=== PATIENT | male | born 1950 | race Caucasian/White ===

== ENCOUNTER 2019-06-14 09:57 | Emergency (ER) | payer OTHER, MEDICARE ==
--- NOTE | 2019-06-14 11:48 | EDPHYS ---
Physician Documentation [facility] Name: Aris Chamorro Age: 69 yrs Sex: Male : 1950 Arrival Date: 06/14/2019 Time: 09:58 Bed 11 Private MD: ED Physician Sanjay Nugent HPI: 06/14 11:00 This 69 yrs old Male presents to ER via Ambulatory with complaints of cp Laceration - Finger. 11:00 The patient or guardian reports injury. The complaints affect the distal phalanx left cp fourth finger. Context: resulted from use of meat cleavor to cut frozen zhang. Onset: The symptoms/episode began/occurred just prior to arrival. Associated signs and symptoms: Pertinent negatives: cyanosis distally, decreased sensation distally. Historical: - Allergies: 10:45 No Known Allergies; iw - Home Meds: 10:46 Plavix 75 mg Oral tab 1 tab once daily [Active]; iw - PMHx: 10:45 Myocardial infarction; iw - PSHx: 10:45 Heart stents; iw - Immunization history:: Adult Immunizations. - Social history:: Smoking status: Patient/guardian denies using tobacco. - Ebola Screening: : Patient negative for fever greater than or equal to 101.5 degrees Fahrenheit, and additional compatible Ebola Virus Disease symptoms Patient denies exposure to infectious person Patient denies travel to an Ebola-affected area in the 21 days before illness onset No symptoms or risks identified at this time. ROS: 11:01 Constitutional: Negative for fever. cp 11:01 Cardiovascular: Negative for chest pain. 11:01 Respiratory: Negative for cough, shortness of breath, wheezing. 11:01 Abdomen/GI: Negative for abdominal pain, nausea, vomiting, and diarrhea. 11:01 Skin: Positive for laceration(s), of the distal phalanx left fourth finger. 11:01 Neuro: Negative for numbness, tingling, weakness. 11:01 All other systems are negative. Exam: 11:10 Constitutional: The patient appears alert, awake, non-toxic, well developed, well cp nourished. 11:10 Head/Face: Normocephalic, atraumatic. cp 11:10 Skin: injury, avulsion(s), a small of the distal phalanx gutiérrez side left fourth finger, that can be described as with moderate bleeding. 11:10 Neuro: Motor: is normal, Sensation: is normal. Vital Signs: 10:46 BP 142 / 82; Pulse 55; Resp 16; Pulse Ox 94% on R/A; Weight 86.18 kg; Height 5 ft. 8 iw in. (172.72 cm); Pain /10; 10:46 Body Mass Index 28.89 (86.18 kg, 172.72 cm) iw MDM: 10:51 Patient medically screened. cp 11:46 Data reviewed: vital signs, nurses notes, radiologic studies, plain films. cp 11:46 Test interpretation: by ED physician or midlevel provider: plain radiologic studies. cp Response to treatment: the patient's symptoms have markedly improved after treatment, Surgiseal and pressure dressing applied to control bleeding. Wound check and dressing change recommended next 2-3 days. 06/14 10:59 Order name: XRAY Hand LEFT 3 View; Complete Time: 12:03 cp 06/14 11:18 Order name: Wound dressing: surgiseal dressing and pressure dressing; Complete Time: cp 11:51 Administered Medications: No medications were administered Disposition: 12:35 Chart complete. cp Disposition: 06/14/19 11:47 Discharged to Home. Impression: Laceration without foreign body of finger without damage to nail - left fourth finger. - Condition is Stable. - Discharge Instructions: Laceration Care, Adult. - Prescriptions for Keflex 500 mg Oral Capsule - take 1 capsule by ORAL route every 12 hours for 10 days; 20 capsule. - Medication Reconciliation Form, Thank You Letter, Antibiotic Education, Prescription Opioid Use, Work release form form. - Follow up: Private Physician; When: 48 Hours; Reason: Wound Recheck. - Problem is new. - Symptoms have improved. Addendum: 06/19/2019 08:55 Co-signature as Attending Physician, Sanjay Nugent MD I agree with the assessment and k dr plan of care. Signatures: Dispatcher [employer] EDCT Sajnay Nugent MD MD [facility] Kaur Chew RN RN iw Smirch, Shelby, RN RN ss Humberto Gan PA PA cp Corrections: (The following items were deleted from the chart) 06/14 12:29 11:47 06/14/2019 11:47 Discharged to Home. Impression: Laceration without foreign body ss of finger without damage to nail - left fourth finger. Condition is Stable. Forms are Medication Reconciliation Form, Thank You Letter, Antibiotic Education, Prescription Opioid Use. Follow up: Private Physician; When: 48 Hours; Reason: Wound Recheck. Problem is new. Symptoms have improved. cp
--- NOTE | 2019-06-14 11:48 | ER ---
Nurse's Notes [facility] Name: Aris Chamorro Age: 69 yrs Sex: Male : 1950 Arrival Date: 06/14/2019 Time: 09:58 Bed 11 Private MD: Diagnosis: Laceration without foreign body of finger without damage to nail-left fourth finger Presentation: 06/14 10:46 Presenting complaint:. iw 10:47 Presenting complaint: Patient states: was using a sharp meat julee to cut frozen iw zhang, cut the padding off left fourth digit, dressing in pace, bleeding controlled. Transition of care: patient was not received from another setting of care. Complicating Factors: There are no complicating factors for this patient. Onset of symptoms was June 14, 2019. Risk Assessment: Do you want to hurt yourself or someone else? Patient reports no desire to harm self or others. Initial Sepsis Screen: Does the patient meet any 2 criteria? No. Patient's initial sepsis screen is negative. Does the patient have a suspected source of infection? No. Patient's initial sepsis screen is negative. Care prior to arrival: None. 10:47 Method Of Arrival: Ambulatory iw 10:47 Acuity: YAEL 4 iw Historical: - Allergies: 10:45 No Known Allergies; iw - Home Meds: 10:46 Plavix 75 mg Oral tab 1 tab once daily [Active]; iw - PMHx: 10:45 Myocardial infarction; iw - PSHx: 10:45 Heart stents; iw - Immunization history:: Adult Immunizations. - Social history:: Smoking status: Patient/guardian denies using tobacco. - Ebola Screening: : Patient negative for fever greater than or equal to 101.5 degrees Fahrenheit, and additional compatible Ebola Virus Disease symptoms Patient denies exposure to infectious person Patient denies travel to an Ebola-affected area in the 21 days before illness onset No symptoms or risks identified at this time. Screenin:26 Abuse screen: Denies threats or abuse. Denies injuries from another. Nutritional ss screening: No deficits noted. Tuberculosis screening: Never had TB. Fall Risk None identified. Assessment: 12:26 Reassessment: Patient appears in no apparent distress at this time. Patient and/or ss family updated on plan of care and expected duration. Pain level reassessed. Patient is alert, oriented x 3, equal unlabored respirations, skin warm/dry/pink. bleeding controlled with Surgicel and pressure dressing. Vital Signs: 10:46 BP 142 / 82; Pulse 55; Resp 16; Pulse Ox 94% on R/A; Weight 86.18 kg; Height 5 ft. 8 iw in. (172.72 cm); Pain 1/10; 10:46 Body Mass Index 28.89 (86.18 kg, 172.72 cm) iw ED Course: 09:58 Patient arrived in ED. as 10:48 Triage completed. iw 10:48 Arm band placed on. iw 10:50 Humberto Gan PA is PHCP. cp 10:50 Sanjay Nugent MD is Attending Physician. cp 11:37 X-ray completed. Portable x-ray completed in exam room. Patient tolerated procedure mh1 well. 11:40 XRAY Hand LEFT 3 View In Process Unspecified. EDMS 12:26 Patient has correct armband on for positive identification. Bed in low position. Call ss light in reach. 12:26 No provider procedures requiring assistance completed. Patient did not have IV access ss during this emergency room visit. Wound care: to avulsion was cleaned with soap and water, dressed with Surgicel, Coban and 4x4, Patient tolerated well. Administered Medications: No medications were administered Outcome: 11:47 Discharge ordered by MD. cp 12:26 Discharged to home ambulatory. ss 12:26 Condition: good 12:26 Discharge instructions given to patient, family, Instructed on discharge instructions, follow up and referral plans. medication usage, wound care, Demonstrated understanding of instructions, follow-up care, medications, wound care, Prescriptions given X 1. 12:29 Patient left the ED. ss Signatures: Dispatcher [employer] EDMS OliverChelsea 1 Aura Sparks Irene, RN RN Yesenia Spicer RN RN Humberto Gan PA PA cp Corrections: (The following items were deleted from the chart) 10:47 10:46 BP 142 / 82; Pulse 55bpm; Resp 16bpm; Pulse Ox 94% RA; iw iw
--- NOTE | 2019-06-14 11:49 | RAD REPORT ---
EXAM DESCRIPTION: RAD - Hand Left 3 View - 06/14/2019 11:38 am CLINICAL HISTORY: finger laceration COMPARISON: <Comparisons> FINDINGS: Soft tissue laceration is noted involving the distal fourth finger. No fracture or foreign body evident.
[2019-06-14 12:42] VITALS: BP 142/82; O2SAT 94
== END 2019-06-14 12:29 | disposition home or self-care (01) ==
LOC: ER 09:57
DX: S61.215A Laceration without foreign body of left ring finger without damage to nail, initial encounter (principal); W26.0XXA Contact with knife, initial encounter; Y93.89 Activity, other specified; Y92.9 Unspecified place or not applicable; I25.2 Old myocardial infarction; Z79.01 Long term (current) use of anticoagulants; Z95.818 Presence of other cardiac implants and grafts
CPT/HCPCS: 99283

== ENCOUNTER 2020-07-30 09:02 | Emergency (ER) | payer OTHER, MEDICARE ==
--- NOTE | 2020-07-30 09:36 | ER ---
Nurse's Notes [facility] Name: Aris Chamorro Age: 70 yrs Sex: Male : 1950 Arrival Date: 07/30/2020 Time: 09:02 Bed 15 Private MD: Erik Swartz B Diagnosis: Pacheco's palsy Presentation: 07/30 09:00 Chief complaint: Patient states: woke up this morning and as he was brushing his teeth iw he noticed he was drooling, right side of face had a droop and his right eyelid was not moving normally, denies weakness in extremities, assistant banquet manager strong and equal, no speech impairment . Pt went to bed at 1145 pm last night, last known well is 1145 pm yesterday. Coronavirus screen: At this time, the client does not indicate any symptoms associated with coronavirus-19. Ebola Screen: Patient negative for fever greater than or equal to 101.5 degrees Fahrenheit, and additional compatible Ebola Virus Disease symptoms Patient denies exposure to infectious person. Patient denies travel to an Ebola-affected area in the 21 days before illness onset. No symptoms or risks identified at this time. Initial Sepsis Screen: Does the patient meet any 2 criteria? No. Patient's initial sepsis screen is negative. Does the patient have a suspected source of infection? No. Patient's initial sepsis screen is negative. Risk Assessment: Do you want to hurt yourself or someone else? Patient reports no desire to harm self or others. 09:00 Method Of Arrival: Wheelchair iw 09:00 Acuity: YAEL 3 iw 09:00 Onset of symptoms was July 29, 2020 at 23:00. bp Triage Assessment: 09:13 General: Appears distressed, comfortable, well groomed, Behavior is cooperative, bp appropriate for age, anxious. Pain: Denies pain. EENT: No deficits noted. Neuro: Level of Consciousness is awake, alert, obeys commands, Oriented to person, place, time, situation, Appropriate for age Robotic Maintenance Technician are equal bilaterally Moves all extremities. Full function Facial droop on right, INVOLVING ALL THREE BRANCHES OF TRIGEMINAL. Cardiovascular: No deficits noted. Respiratory: No deficits noted. GI: No signs and/or symptoms were reported involving the gastrointestinal system. : No signs and/or symptoms were reported regarding the genitourinary system. Derm: No deficits noted. Musculoskeletal: No deficits noted. Historical: - Allergies: 09:15 No Known Allergies; iw - Home Meds: 09:15 clopidogrel 75 mg oral tab 1 tab once daily [Active]; amlodipine 2.5 mg tab 1 tab once iw daily [Active]; atorvastatin 40 mg oral tab 1 tab once daily [Active]; irbesartan 300 mg oral tab 1 tab once daily [Active]; ezetimibe oral oral once daily [Active]; - PMHx: 09:15 Myocardial infarction; iw - PSHx: 09:15 Heart stents; iw - Immunization history:: Adult Immunizations up to date. - Social history:: Smoking status: Patient denies any tobacco usage or history of. - Family history:: not pertinent. Screenin:09 Abuse screen: Denies threats or abuse. Nutritional screening: No deficits noted. tw2 Tuberculosis screening: No symptoms or risk factors identified. Fall Risk None identified. Assessment: 09:13 General: SEE TRIAGE NOTE. bp 10:05 Reassessment: PT D/C HOME AMBULATORY WITH FAMILY, DX WITH PACHECO'S PALSY. bp Vital Signs: 09:19 BP 177 / 85; Pulse 51; Resp 16; Temp 98.2; Pulse Ox 99% on R/A; Weight 86.18 kg; Height iw 5 ft. 8 in. (172.72 cm); 09:38 BP 162 / 101; Pulse 55; Resp 12; Pulse Ox 98% ; bp 09:19 Body Mass Index 28.89 (86.18 kg, 172.72 cm) iw NIH Stroke Scale Scores: 09:33 NIHSS Score: 1 patel ED Course: 09:02 Patient arrived in ED. ag5 09:02 Erik Swartz MD is Private Physician. ag5 09:03 Bed in low position. Call light in reach. Adult w/ patient. clinical research monitor on. Pulse tw2 ox on. NIBP on. 09:12 Zachary Garcia RN is Primary Nurse. bp 09:14 Triage completed. iw 09:17 Humberto Carlson MD is Attending Physician. patel 09:35 Erik Swartz MD is Referral Physician. patel 09:35 Anselmo Pierce MD is Referral Physician. patel 10:05 No provider procedures requiring assistance completed. Patient did not have IV access bp during this emergency room visit. 10:06 Arm band placed on. bp Administered Medications: 09:37 Drug: predniSONE 60 mg Route: PO; bp 10:07 Follow up: Response: No adverse reaction bp 09:37 Drug: valACYclovir 1000 mg Route: PO; bp 10:07 Follow up: Response: No adverse reaction bp Outcome: 09:36 Discharge ordered by . patel 10:05 Discharged to home ambulatory, with family. bp 10:05 Condition: stable 10:05 Discharge instructions given to patient, Instructed on discharge instructions, follow up and referral plans. medication usage, Demonstrated understanding of instructions, follow-up care, medications, Prescriptions given X 3. 10:07 Patient left the ED. bp NIH Stroke Scale - NIH Stroke Score Date: 07/30/2020 Time: 09:33 Total Score = 1 1a. Level of Consciousness (LOC) - 0(Alert) 1b. Level of Consciousness (LOC) (Year \T\ Age) - 0(Both) 1c. LOC Commands (Open \T\ Closes Eyes/Pharmacy Delivery Driver) - 0(Both) 2. Best Gaze (Lateral Gaze Paresis) - 0(Normal) 3. Visual Field Loss - 0(No visual loss) 4. Facial Palsy - 1(Minor Paralysis) 5a. Left Arm: Motor (10-second hold) - 0(No drift) 5b. Right Arm: Motor (10-second hold) - 0(No drift) 6a. Left Leg: Motor (5-second hold - always test supine) - 0(No drift) 6b. Right Leg: Motor (5-second hold - always test supine) - 0(No drift) 7. Limb Ataxia (finger/nose \T\ heel/sandhu - test with eyes open) - 0(Absent) 8. Sensory Loss (pinprick arms/legs/face) - 0(Normal) 9. Best Language: Aphasia (description/naming/reading) - 0(No aphasia) 10. Dysarthria (speech clarity - read or repeat words) - 0(Normal) 11. Extinction and Inattention (visual/tactile/auditory/spatial/personal) - 0(No abnormality) Initials: patel Signatures: Humberto Carlson MD MD cha Williams, Irene, RN RN iw Dipti Rodgers RN RN tw2 Zachary Garcia RN RN bp Gaskin, Ajare ag5 Corrections: (The following items were deleted from the chart) 09:19 09:00 Chief complaint: Patient states: woke up this morning and as he was iw brushing his teeth he noticed he was drooling, right side of face had a droop and his right eyelid was not moving normally, denies weakness in extremities, assistant banquet manager strong and equal, no speech impairment iw
--- NOTE | 2020-07-30 09:37 | EDPHYS ---
Physician Documentation [facility] Name: Aris Chamorro Age: 70 yrs Sex: Male : 1950 Arrival Date: 07/30/2020 Time: 09:02 Bed 15 Private MD: Erik Swartz B ED Physician Humberto Carlson HPI: 07/30 09:30 This 70 yrs old Male presents to ER via Wheelchair with complaints of Facial patel Droop. 09:30 The patient presents to the emergency department with weakness of the right side of the patel face, that is moderate. Onset: The symptoms/episode began/occurred this morning, today. Context: occurred at home. Associated signs and symptoms: The patient has no apparent associated signs or symptoms. Severity of symptoms: At their worst the symptoms were mild in the emergency department the symptoms are unchanged. Patient's baseline: Neuro: alert and fully oriented. The patient has not experienced similar symptoms in the past. Historical: - Allergies: 09:15 No Known Allergies; iw - Home Meds: 09:15 clopidogrel 75 mg oral tab 1 tab once daily [Active]; amlodipine 2.5 mg tab 1 tab once iw daily [Active]; atorvastatin 40 mg oral tab 1 tab once daily [Active]; irbesartan 300 mg oral tab 1 tab once daily [Active]; ezetimibe oral oral once daily [Active]; - PMHx: 09:15 Myocardial infarction; iw - PSHx: 09:15 Heart stents; iw - Immunization history:: Adult Immunizations up to date. - Social history:: Smoking status: Patient denies any tobacco usage or history of. - Family history:: not pertinent. ROS: 09:30 Constitutional: Negative for fever, chills, and weight loss, Eyes: Negative for injury, patel pain, redness, and discharge, ENT: Negative for injury, pain, and discharge, Neck: Negative for injury, pain, and swelling, Cardiovascular: Negative for chest pain, palpitations, and edema, Respiratory: Negative for shortness of breath, cough, wheezing, and pleuritic chest pain, Abdomen/GI: Negative for abdominal pain, nausea, vomiting, diarrhea, and constipation, Back: Negative for injury and pain, : Negative for injury, bleeding, discharge, and swelling, MS/Extremity: Negative for injury and deformity, Skin: Negative for injury, rash, and discoloration, Psych: Negative for depression, anxiety, suicide ideation, homicidal ideation, and hallucinations, Allergy/Immunology: Negative for hives, rash, and allergies, Endocrine: Negative for neck swelling, polydipsia, polyuria, polyphagia, and marked weight changes. 09:30 Neuro: Positive for weakness, of the forehead, right cheek, right episcopal and right jaw. Exam: 09:30 Constitutional: This is a well developed, well nourished patient who is awake, alert, patel and in no acute distress. Head/Face: Normocephalic, atraumatic. Eyes: Pupils equal round and reactive to light, extra-ocular motions intact. Lids and lashes normal. Conjunctiva and sclera are non-icteric and not injected. Cornea within normal limits. Periorbital areas with no swelling, redness, or edema. ENT: Nares patent. No nasal discharge, no septal abnormalities noted. Tympanic membranes are normal and external auditory canals are clear. Oropharynx with no redness, swelling, or masses, exudates, or evidence of obstruction, uvula midline. Mucous membranes moist. Neck: Trachea midline, no thyromegaly or masses palpated, and no cervical lymphadenopathy. Supple, full range of motion without nuchal rigidity, or vertebral point tenderness. No Meningismus. Chest/axilla: Normal chest wall appearance and motion. Nontender with no deformity. No lesions are appreciated. Cardiovascular: Regular rate and rhythm with a normal S1 and S2. No gallops, murmurs, or rubs. Normal PMI, no JVD. No pulse deficits. Respiratory: Lungs have equal breath sounds bilaterally, clear to auscultation and percussion. No rales, rhonchi or wheezes noted. No increased work of breathing, no retractions or nasal flaring. Abdomen/GI: Soft, non-tender, with normal bowel sounds. No distension or tympany. No guarding or rebound. No evidence of tenderness throughout. Back: No spinal tenderness. No costovertebral tenderness. Full range of motion. Male : Normal genitalia with no discharge or lesions. Skin: Warm, dry with normal turgor. Normal color with no rashes, no lesions, and no evidence of cellulitis. MS/ Extremity: Pulses equal, no cyanosis. Neurovascular intact. Full, normal range of motion. Neuro: Awake and alert, GCS 15, oriented to person, place, time, and situation. Cranial nerves II-XII grossly intact. Motor strength 5/5 in all extremities. Sensory grossly intact. Cerebellar exam normal. Normal gait. Psych: Awake, alert, with orientation to person, place and time. Behavior, mood, and affect are within normal limits. 09:30 Neuro: Orientation: is normal, appropriate for stated age, no acute changes, Mentation: is normal, appropriate for stated age, no acute changes, Memory: is normal, appropriate for stated age, no acute changes, Cranial nerves: grossly normal, is grossly normal based on the patient's age, no acute changes, facial droop noted on right, with forehead involved. Cerebellar function: is grossly normal based on the patient's age, Motor: is grossly normal based on the patient's age, no acute changes, moves all fours, strength is normal, the no evidence of posturing, Gait: not applicable Babinski testing is normal, seizure activity, is not displayed by the patient. Vital Signs: 09:19 BP 177 / 85; Pulse 51; Resp 16; Temp 98.2; Pulse Ox 99% on R/A; Weight 86.18 kg; Height iw 5 ft. 8 in. (172.72 cm); 09:38 BP 162 / 101; Pulse 55; Resp 12; Pulse Ox 98% ; bp 09:19 Body Mass Index 28.89 (86.18 kg, 172.72 cm) iw NIH Stroke Scale Scores: 09:33 NIHSS Score: 1 patel MDM: 09:17 Patient medically screened. patel 09:18 Patient medically screened. patel 09:34 Data reviewed: vital signs, nurses notes. Data interpreted: lunchroom monitor: rate is 51 patel beats/min, rhythm is regular, Pulse oximetry: on. Test interpretation: by ED physician or midlevel provider:. Counseling: I had a detailed discussion with the patient and/or guardian regarding: the historical points, exam findings, and any diagnostic results supporting the discharge/admit diagnosis, the need for outpatient follow up, for definitive care, a family practitioner, a neurologist. 07/30 09:24 Order name: Glucose, Ancillary Testing EDMS Administered Medications: 09:37 Drug: predniSONE 60 mg Route: PO; bp 10:07 Follow up: Response: No adverse reaction bp 09:37 Drug: valACYclovir 1000 mg Route: PO; bp 10:07 Follow up: Response: No adverse reaction bp Disposition: 07/30/20 09:36 Discharged to Home. Impression: Pacheco's palsy. - Condition is Stable. - Discharge Instructions: Pacheco Palsy, Adult, Aspirin and Your Heart. - Prescriptions for Artificial Tears - place 1 application by OPHTHALMIC route 8 times per day; 30 milliliter. Valtrex 1 g Oral Tablet - take 1 tablet by ORAL route every 8 hours for 7 days; 21 tablet. Prednisone 20 mg Oral Tablet - take 2 tablet by ORAL route once daily for 5 days; 10 tablet. - Medication Reconciliation Form, Thank You Letter, Antibiotic Education, Prescription Opioid Use form. - Follow up: Erik Swartz MD; When: 2 - 3 days; Reason: Recheck today's complaints, Continuance of care, Re-evaluation by your physician. Follow up: Anselmo Pierce MD; When: 2 - 3 days; Reason: Recheck today's complaints, Continuance of care, Re-evaluation by your physician. - Problem is new. - Symptoms have improved. NIH Stroke Scale - NIH Stroke Score Date: 07/30/2020 Time: 09:33 Total Score = 1 1a. Level of Consciousness (LOC) - 0(Alert) 1b. Level of Consciousness (LOC) (Year \T\ Age) - 0(Both) 1c. LOC Commands (Open \T\ Closes Eyes/Consumer Loan Processor) - 0(Both) 2. Best Gaze (Lateral Gaze Paresis) - 0(Normal) 3. Visual Field Loss - 0(No visual loss) 4. Facial Palsy - 1(Minor Paralysis) 5a. Left Arm: Motor (10-second hold) - 0(No drift) 5b. Right Arm: Motor (10-second hold) - 0(No drift) 6a. Left Leg: Motor (5-second hold - always test supine) - 0(No drift) 6b. Right Leg: Motor (5-second hold - always test supine) - 0(No drift) 7. Limb Ataxia (finger/nose \T\ heel/sandhu - test with eyes open) - 0(Absent) 8. Sensory Loss (pinprick arms/legs/face) - 0(Normal) 9. Best Language: Aphasia (description/naming/reading) - 0(No aphasia) 10. Dysarthria (speech clarity - read or repeat words) - 0(Normal) 11. Extinction and Inattention (visual/tactile/auditory/spatial/personal) - 0(No abnormality) Initials: patel Signatures: Humberto Carlson MD MD cha Williams, Irene, RN RN iw Zachary Garcia RN RN bp Corrections: (The following items were deleted from the chart) 10:07 09:36 07/30/2020 09:36 Discharged to Home. Impression: Pacheco's palsy. Condition bp is Stable. Forms are Medication Reconciliation Form, Thank You Letter, Antibiotic Education, Prescription Opioid Use. Follow up: Erik Swartz; When: 2 - 3 days; Reason: Recheck today's complaints, Continuance of care, Re-evaluation by your physician. Follow up: Anselmo Pierce; When: 2 - 3 days; Reason: Recheck today's complaints, Continuance of care, Re-evaluation by your physician. Problem is new. Symptoms have improved. patel
[2020-07-30] MEDS ORDERED: predniSONE 20 MG TAB ONE (09:47)
[2020-07-30] MEDS ORDERED: VALACYCLOVIR 500 MG TAB ONE (09:47)
[2020-07-30 10:15] VITALS: TEMP 98.2
[2020-07-30 10:16] VITALS: BP 162/101; O2SAT 98
== END 2020-07-30 10:07 | disposition home or self-care (01) ==
LOC: ER 09:02
DX: G51.0 Bell's palsy (principal); I25.2 Old myocardial infarction; Z95.818 Presence of other cardiac implants and grafts
CPT/HCPCS: 82947; 99284; J7512